=== PATIENT | male | born 1985 | race Caucasian/White ===

== ENCOUNTER 2024-02-09 02:12 | Emergency (ER) | payer MEDICAID, OTHER ==
[~2024-02-09] VITALS: Ht 172.7 cm; Wt 70.0 kg
[2024-02-09 02:35] VITALS: BP 127/35; PULSE 81; RESP 16; TEMP 98.1
[2024-02-09 02:42] VITALS: O2SAT 100
== END 2024-02-09 02:57 | disposition home or self-care (01) ==
LOC: ER 02:12 → EDBD 02:12 → ER 02:57
DX: T40.411A Poisoning by fentanyl or fentanyl analogs, accidental (unintentional), initial encounter (principal); Z53.21 Procedure and treatment not carried out due to patient leaving prior to being seen by health care provider; Z79.899 Other long term (current) drug therapy; Y92.89 Other specified places as the place of occurrence of the external cause
CPT/HCPCS: 93005